=== PATIENT | male | born 1950 | race African-American/Black ===

== ENCOUNTER 2020-05-02 19:26 | Emergency (ER) | payer MEDICARE ==
[~2020-05-02] VITALS: Ht 182.9 cm; Wt 62.8 kg
--- NOTE | ~2020-05-02 | HC ---
[facility] [address] [place] [address] CONSULTATION Name: OBIE CRUZ Room [facility]: [facility] [id number] Admission: 05/02/20 Attend Phys: Discharge: 05/03/20 Date of : 54 Report #: [id number] THIS REPORT FOR: cc: FAM - Family physician unknown FAM - Family physician unknown Tylor Villa MD ~ DATE OF SERVICE: 05/02/2020 HISTORY OF PRESENT ILLNESS: This 69-year-old male patient on whom I got a call from Dr. Guillen from the Emergency Room physician at 8:00 p.m., that this patient had presented with right-sided weakness and complete aphasia. He has done a CT scan of the head, which showed finding consistent with left hemispheric stroke, as well as a possible hyperdense sign in the left MCA. The patient last known well was at 7:00 p.m. yesterday, so it looks like it was more than 24 hours. I suggested either transferring the patient to another facility for further workup to see if anything is salvageable or doing the CT stroke protocol. It looks like CT protocol was done and I got another call around 11:[address] scan showed a possible penumbra. I had reviewed the CT films and it looks like the CT was showing a completed infarct to me. They called Dr. Guillen at 11:20, also indicated that he first tried to transfer the patient to [facility] because of CTA and perfusion finding, but [facility] was closed. Then, he tried to transfer to [facility] and there were glitches in that as summarized in his note. I suggested that we still continue to make an effort to try to transfer him to a comprehensive stroke center, so that somebody can evaluate him for possible neurovascular intervention. I reviewed the films on my computer and subsequently came in and reviewed on the hospital computer. To me, it still looks like the stroke is complete. However, because of the findings of the radiologist here, this needs to be evaluated by a neuro-interventionalist and Dr. Guillen is in the process of arranging that. I talked to the nurses looking after this patient. They have tried, but they have never been able to contact anybody. They are unable to reach the girlfriend and there is nobody else they can reach. They have called the pharmacy and tried to get his medication list, but otherwise they cannot reach anybody. This patient is completely aphasic and he is not able to provide any history and in fact is not able to follow even simple commands. 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 He did not move anything on my exam on the right side, he moves left side freely. He is globally aphasic, then he has no speech. 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 Attempt is being made to transfer him to some comprehensive stroke center for evaluation of any intervention and that is already in progress. I have talked to Dr. Guillen that if research does not [address] [address] CONSULTATION Name: OBIE CRUZ Room #: DEP [place] [place]#: [id number] Admission: 05/02/20 Attend Phys: Discharge: 05/03/20 Date of : 54 Report #: [id number] work out, they can try [facility]. From my examination of the films, the stroke looks complete. From history, it is more than 24 hours duration from the last seen eval, but we can go by the imaging studies. I do not think that I cannot make any good conclusion on perfusion images, but the stroke is already showing up on the CT by my interpretation. We will see what the interventionalist shows. I will be happy to help in any way I can help and Dr. Guillen was on the phone with research, so I left a message with the nurses to ask them to call me if he has any questions or if I can provide any help in any way. Thank you very much for this referral. By: [id number] Tylor Villa MD /sabino
[2020-05-02 20:02] LABS: ABSOLUTE NEUTROPHILS 6.3 thou/uL (1.4-8.2); BASOPHILS 0.3 % (0.0-2.0); EOSINOPHILS 0.1 % (0.0-3.0); HEMOGLOBIN 13.9 gm/dL (14.0-18.0); LYMPHOCYTES 7.8 % (24.0-44.0); MCH 31.3 pg (26.0-34.0); MCV 92.2 fL (80.0-100.0); MONOCYTES 5.5 % (1.0-8.0); PLATELET COUNT 177 thou/uL (150-400); POLYS 86.3 % (36.0-66.0); RBC 4.45 mil/uL (4.50-6.00); RDW 13.1 % (10.5-14.5); WBC 7.4 thou/uL (4.0-11.0)
[2020-05-02 20:12] LABS: ANION GAP 11 mmol/L (7-16); BUN 11 mg/dL (7-18); CHLORIDE 106 mmol/L (98-107); CO2 27 mmol/L (21-32); CREATININE 1.3 mg/dL (0.7-1.3); GLUCOSE 157 mg/dL (74-106); SODIUM 144 mmol/L (136-145)
[2020-05-02 20:22] LABS: ALBUMIN 3.8 g/dL (3.4-5.0); SGOT 37 U/L (15-37); SGPT 24 U/L (30-65); TOTAL BILIRUBIN 0.8 mg/dL (0.2-1.0); TOTAL PROTEIN 6.9 g/dL (6.4-8.2); TROPONIN-I <0.06 ng/mL (<0.06)
[2020-05-02 20:46] LABS: APTT 25.9 Seconds (24.5-32.8); PROTIME 10.6 Seconds (9.3-11.4)
[2020-05-02] MEDS ORDERED: TADALAFIL20 M1 PO (22:59)
[2020-05-02] MEDS ORDERED: VENTOLIN HFA 1818 GM INH (23:00)
[2020-05-02] MEDS ORDERED: VIAGRA100 MG PO (23:00)
[2020-05-02] MEDS ORDERED: TIZANIDINE HCL 22 M1 PO (23:00)
[2020-05-02] MEDS ORDERED: SPIRIVA18 MCG INH (23:01)
[2020-05-02] MEDS ORDERED: ADVAIR 250-501 EACH INH (23:01)
[2020-05-03 01:10] VITALS: BP 127/59
--- NOTE | 2020-05-03 07:56 | EKG ---
[facility] [place] [address] ELECTROCARDIOGRAM REPORT Name: OBIE CRUZ Room #: DEP [facility]#: [id number] Admission: 05/02/20 Attend Phys: Discharge: 05/03/20 Date of : 54 Report #: [id number] THIS REPORT FOR: cc: FAM - Family physician unknown FAM - Family physician unknown Sandeep Parson MD [facility] THIS REPORT FOR: //name// 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
== END 2020-05-03 01:13 | disposition still patient (30) ==
LOC: ER 19:26
PROVIDERS: Emergency Medicine
DX: I63.512 Cerebral infarction due to unspecified occlusion or stenosis of left middle cerebral artery (principal); Z79.899 Other long term (current) drug therapy